=== PATIENT | female | born 1940 | race Caucasian/White ===

== ENCOUNTER → 2016-10-21 | Day surgery (SDC) | payer OTHER ==
[~2016-10-21] MED LIST: AMITRYPTYLINE PO; ATIVAN PO; ATIVAN0.5 M1 PO; CENTRUM SPECIA1 EAC1 PO; CLARITIN10 MG PO; ESOMEPRAZOLE MA40 MG; INDERAL20 MG DOB; LASIX20 MG PO; LIPITOR PO; LORAZEPAM0.5 MG PO; MULTI-VITAMIN1 TAB PO; MUPIROCIN0.9 GM EXT; NEXIUM PO; OCUVITE LUTEIN1 CA1 PO; PAMELOR PO; PREDNISONE5 MG PO; PROPRANOLOL HCL20 MG PO; PROPRANOLOL PO; TAPAZOLE10 MG PO; TRAMADOL HCL50 M1 PO; [UNRECOGNIZED DRUG - OTHER]
--- NOTE | ~2016-10-21 | OR ---
Unit #: [id number]: [id number] Patient: WU [id number] [address] [address] [id number] MR#: [id number] NAME: WU YI ROOM: Date of Procedure: 10/21/2016 Admission Date: 10/21/2016 Surgeon: Red Lofton Jr., M.D. : 1940 Attending Physician: Red Lofton Jr., M.D. Referring Physician: Red Lofton Jr., M.D. Primary Care Physician: Fran Roe M.D. OPERATIVE REPORT INDICATION FOR PROCEDURE This is a 76-year-old white female, who has been having recent problems with dysphagia. She has had chronic esophageal reflux and also has had a history esophageal stenosis with the dilatation approximately a year ago. The patient did well up until now, and it was felt that she probably has recurrent esophageal stenosis. She was brought in this time for upper endoscopy with possible esophageal dilatation. The patient understands the procedure including the risks, including that of perforation and bleeding, and consents. PREOPERATIVE DIAGNOSIS Recurrent esophageal stenosis. POSTOPERATIVE DIAGNOSIS Recurrent esophageal stenosis, noting mild stenosis along with mild gastritis. ANESTHESIA MAC anesthesia. PROCEDURE PERFORMED Flexible fiberoptic esophagogastroduodenoscopy with esophageal dilatation using an 18 to 20 mm balloon dilator. DESCRIPTION OF PROCEDURE The patient was positioned in López position with left side down. After being given MAC anesthesia, Olympus XQ scope was passed through the proximal esophagus. The entire esophagus was examined. There was no evidence of any significant ulcerations, but there was some mild stenosis and mild esophagitis. The scope was advanced through the GE junction, the cardia, and down the fundic and antral region of the stomach, retroflexed back up to the area of the cardia. There was a small hiatal hernia present. The stomach distended well without evidence of rigidity. No evidence of any gastric ulcer disease. There was some minimal gastritis mostly in the antrum of the stomach. The scope was then advanced down the area of the antrum through the pylorus and the duodenal bulb and down to the second portion of the duodenum. Entire duodenal portion examination was within normal limits. The scope was then brought back up to the area of the stomach, and an 18 to 20 mm balloon dilator was used to dilate the distal esophagus from 18 to 19 to 20 mm. The patient tolerated this well. The scope was slowly removed. The patient tolerated the procedure well without apparent problems. The patient was discharged in satisfactory Unit #: [id number] #: [id number] Patient: WU YI condition. Dictated by... Red Lofton Jr., MTej CAMP/karen TD: 10/22/2016 03:54 JOB #: [id number] OPERATIVE REPORT Page 1 of 1 X Red Lofton MD X PROCEDURE OPERATIVE NOTE
== END | disposition home or self-care (01) ==
LOC: COPS 10:19
DX: K22.2 Esophageal obstruction (principal); K44.9 Diaphragmatic hernia without obstruction or gangrene; K20.9 Esophagitis, unspecified; K29.70 Gastritis, unspecified, without bleeding; R01.1 Cardiac murmur, unspecified; K21.9 Gastro-esophageal reflux disease without esophagitis; N39.3 Stress incontinence (female) (male); F41.9 Anxiety disorder, unspecified; N18.9 Chronic kidney disease, unspecified; I35.0 Nonrheumatic aortic (valve) stenosis; E78.00 Pure hypercholesterolemia, unspecified; M15.9 Polyosteoarthritis, unspecified; E05.90 Thyrotoxicosis, unspecified without thyrotoxic crisis or storm; Z90.710 Acquired absence of both cervix and uterus; Z98.51 Tubal ligation status; Z98.41 Cataract extraction status, right eye; Z98.42 Cataract extraction status, left eye; Z88.1 Allergy status to other antibiotic agents; Z88.8 Allergy status to other drugs, medicaments and biological substances; Z91.040 Latex allergy status; Z79.52 Long term (current) use of systemic steroids; Z79.899 Other long term (current) drug therapy; Z86.19 Personal history of other infectious and parasitic diseases; Z90.49 Acquired absence of other specified parts of digestive tract; Z90.89 Acquired absence of other organs; Z87.891 Personal history of nicotine dependence